=== PATIENT | female | born 1940 | race Caucasian/White ===

== ENCOUNTER → 2016-09-17 | Outpatient (CLI) | payer OTHER, MEDICARE | LOC: MMPC 11:11 | PROVIDERS: ATTEND Surgery | DX: R11.0 Nausea (principal); Z86.010 Personal history of colon polyps | CPT/HCPCS: 99212; G0463 ==

== ENCOUNTER 2016-09-30 08:24 | Day surgery (SDC) | payer OTHER, MEDICARE ==
[~2016-09-30 08:24] MED LIST: LIDOCAINE 2% VISCOUS(20 MG/1 ML) - 15 ML UD CUP PO ONE; LIDOCAINE HCL/PF 2% (20 MG/ML) - 5 ML SYRINGE ONE; Lactated Ringers 1,000 ML PRIMARY IV ONE; MIDAZOLAM 5 MG/1 ML ONE; fentaNYL Inj 100 MCG/2 ML VIAL ONE
[2016-09-30] MEDS: LIDOCAINE W/ SODIUM BICARB 0.5 ML SYR ONE (08:49)
--- NOTE | 2016-09-30 09:45 | GEN.OPNOTE ---
EGD / Colonoscopy Report Surgery Date: 09/30/16 Preoperative Diagnosis: Screening colonoscopy. Persistent nausea Postoperative Diagnosis: Screening colonoscopy. Diverticulosis from the sigmoid colon to the transverse colon. Prepyloric and duodenal ulcers Procedure: Colonoscopy. EGD with biopsy Surgeon: Mike Singh MD Anesthesia Provider: Ventura Espino CRNA Anesthesia Type: MAC Indications: Patient's been having persistent nausea. She also needs screening colonoscopy EGD Findings: Esophagus: Olympus video EGD scope inserted posterior pharynx under direct visualization. Is guided into the esophagus. Patient had tortures esophagus. No ulcers masses or tumors. GE junction proximal be 35 cm from the incisors. GE Junction : GE junction proximal with 35 cm from incisors Fundus : Scope retroflexed on itself revealing a normal fundus. Patient did have a small hiatal hernia Body : Body the stomach within normal limits Prepyloric : Prepyloric area had healing ulcer. Biopsy taken for CLOtest Small Intestine : Second portion of the duodenum had an ulcer not actively bleeding A lubricated flexible upper endoscope was inserted and passed through the esophagus and stomach into the duodenum. Colonoscopy Findings: Prep : Very good Cecum : The video colonoscopy scope inserted getaway the cecum. Patient had a normal-appearing cecum Ascending : Ascending colons within normal limits Transverse : Patient had a few diverticulum in the transverse colon otherwise no pathology Sigmoid : Descending and sigmoid colon had diverticulosis Rectum : No rectal pathology identified Digital Rectal Exam : A lubricated flexible colonoscope was inserted and passed to the blind end of the cecum.
[2016-09-30 11:03] VITALS: RESP 16
[2016-09-30 11:05] VITALS: TEMP 98.7
== END 2016-09-30 10:18 | disposition home or self-care (01) ==
LOC: SDSC 08:24
PROVIDERS: ATTEND Surgery
DX: Z12.11 Encounter for screening for malignant neoplasm of colon (principal); R11.0 Nausea; K57.90 Diverticulosis of intestine, part unspecified, without perforation or abscess without bleeding; K26.9 Duodenal ulcer, unspecified as acute or chronic, without hemorrhage or perforation; K25.9 Gastric ulcer, unspecified as acute or chronic, without hemorrhage or perforation
CPT/HCPCS: 00810; 43239 ×2; 45378 ×2; 87339; J2704; J3010; J2001; J2250; J7120

== ENCOUNTER → 2016-10-07 | Outpatient (CLI) | payer OTHER, MEDICARE | LOC: MMPC 11:11 | PROVIDERS: ATTEND Surgery | DX: K57.31 Diverticulosis of large intestine without perforation or abscess with bleeding (principal); K25.3 Acute gastric ulcer without hemorrhage or perforation | CPT/HCPCS: 99212; G0463 ==